=== PATIENT | male | born 1995 | race Caucasian/White ===

== ENCOUNTER 2018-01-29 20:57 | Emergency (ER) | payer OTHER ==
[~2018-01-29] VITALS: Ht 182.9 cm; Wt 65.8 kg
[2018-01-29] MEDS ORDERED: LIDOCAINE-MPF 1%, 2ML INFIL ONE (23:00)
[2018-01-29] MEDS ORDERED: LIDOCAINE-MPF 1%, 2ML ONE (23:30)
[2018-01-30 00:27] VITALS: BP 138/86
== END 2018-01-30 00:29 | disposition home or self-care (01) ==
LOC: ED 23:59
DX: S52.325A Nondisplaced transverse fracture of shaft of left radius, initial encounter for closed fracture (principal); S52.225A Nondisplaced transverse fracture of shaft of left ulna, initial encounter for closed fracture; Y04.0XXA Assault by unarmed brawl or fight, initial encounter; Y99.8 Other external cause status; Y93.89 Activity, other specified; Y92.009 Unspecified place in unspecified non-institutional (private) residence as the place of occurrence of the external cause
CPT/HCPCS: 12031; 99284